=== PATIENT | female | born 1965 | race Caucasian/White ===

== ENCOUNTER 2020-08-28 09:17 | Observation (INO) | payer BC, OTHER ==
--- NOTE | 2020-08-28 10:29 | CT ---
EXAM: Brain CTWithout contrast: HISTORY: Syncope, injury from a fall COMPARISON: None FINDINGS: No focal mass or midline shift. No intra or extra-axial hemorrhage. Sinuses and mastoids are clear of acute process. IMPRESSION: No mass or bleed or other significant acute intracranial process.
[2020-08-28 10:50] LABS: #Basophils 0.1 thou/uL (0.0-0.2); #Eosinphils 0.2 thou/uL (0.0-0.7); #Lymphocytes 2.9 thou/uL (1.20-3.40); #Monocytes 0.5 thou/uL (0.11-0.59); #Neutrophils 9.3 thou/uL (1.40-6.50); %Basophils 0.5 % (0.0-1.0); %Eosinophils 1.3 % (0.0-10.0); %Lymphocytes 22.1 % (21.0-51.0); %Monocytes 4.2 % (0.0-10.0); %Neutrophils 71.9 % (42.0-75.0); Hemoglobin 15.8 g/dL (12.0-16.0); Mean Corpuscular HGB CONC 32.7 g/dL (32.0-36.0); Mean Corpuscular Hemoglobin 28.9 pg (27.0-31.0); Mean Corpuscular Volume 88.4 fL (78.0-98.0); Mean Platelet Volume 9.6 fL (7.4-10.4); Platelet Count 203 thou/uL (130-400); RBC Distribution Width 12.5 % (11.5-14.5); Red Blood Cell (RBC) Count 5.44 mill/uL (4.20-5.40); White Blood Cell (WBC) Count 12.9 thou/uL (4.8-10.8)
[2020-08-28 11:31] LABS: ALT (SGPT) 19 U/L (8-55); AST (SGOT) 22 U/L (5-34); Albumin 4.1 g/dL (3.5-5.0); Alkaline Phosphatase 88 U/L (40-110); Anion Gap 20 mmol/L (10-20); BUN (Urea Nitrogen) 14 mg/dL (9.8-20.1); Bilirubin, Total 0.6 mg/dL (0.2-1.2); Calc. Creatinine Clearance 0 mL/min (70-130); Calcium 9.4 mg/dL (7.8-10.44); Carbon Dioxide 19 mmol/L (22-29); Chloride 106 mmol/L (98-107); Globulin 3.4 g/dL (2.4-3.5); Glucose 98 mg/dL (70-105); Potassium 3.8 mmol/L (3.5-5.1); Protein, Total 7.5 g/dL (6.0-8.3); Sodium 141 mmol/L (136-145)
[2020-08-28] MEDS ORDERED: Acetaminophen 325 MG TAB PO PRN (13:35)
[2020-08-28] MEDS ORDERED: Ondansetron PF 4 MG/2 ML Vial IVP PRN (13:37)
--- NOTE | 2020-08-28 13:40 | PDOC.HHP ---
Hospitalist HPI Syncope History of Present Illness: The patient is 54-year-old female with past medical history of hypertension, vertigo, and vestibular migraine who presented to the hospital after losing consciousness at home. The patient stated that she has been feeling lightheaded and flushed this morning. This was followed by an episode of losing consciousness. Her reported that the episode lasted only a few seconds. After which the patient was not confused. EMS reported heart rate in the 50s when they arrived. The patient received 0.5 mg of atropine which led to improvement in her heart rate. Past History: PMHx: As above PSHx: Hysterectomy FHx: Noncontributory to current presentation Social: Drinks alcohol socially. Denies smoking or illicit drug use. Hospitalist HPI ROS All other systems reviewed; all pertinent +/- noted in HPI/Subj Hospitalist Exam General Appearance: awake alert ENT: normocephalic atraumatic Neck: supple Heart: RRR, no murmur, no gallops Respiratory: CTAB, no wheezes, no rales Gastrointestinal: soft Extremities: no cyanosis, no clubbing Neurological: cranial nerve grossly intact, no focal deficits Hospitalist Results Result Diagrams: 08/28/20 10:32 08/28/20 10:32 Lab results: Laboratory Last Values WBC 12.9 thou/uL (4.8-10.8) H 08/28/20 10:32 RBC 5.44 mill/uL (4.20-5.40) H 08/28/20 10:32 Hgb 15.8 g/dL (12.0-16.0) 08/28/20 10:32 Hct 48.1 % (36.0-47.0) H 08/28/20 10:32 MCV 88.4 fL (78.0-98.0) 08/28/20 10:32 MCH 28.9 pg (27.0-31.0) 08/28/20 10:32 MCHC 32.7 g/dL (32.0-36.0) 08/28/20 10:32 RDW 12.5 % (11.5-14.5) 08/28/20 10:32 Plt Count 203 thou/uL (130-400) 08/28/20 10:32 MPV 9.6 fL (7.4-10.4) 08/28/20 10:32 Neutrophils % 71.9 % (42.0-75.0) 08/28/20 10:32 Lymphocytes % 22.1 % (21.0-51.0) 08/28/20 10:32 Monocytes % 4.2 % (0.0-10.0) 08/28/20 10:32 Eosinophils % 1.3 % (0.0-10.0) 08/28/20 10:32 Basophils % 0.5 % (0.0-1.0) 08/28/20 10:32 Neutrophils # 9.3 thou/uL (1.40-6.50) H 08/28/20 10:32 Lymphocytes # 2.9 thou/uL (1.20-3.40) 08/28/20 10:32 Monocytes # 0.5 thou/uL (0.11-0.59) 08/28/20 10:32 Eosinophils # 0.2 thou/uL (0.0-0.7) 08/28/20 10:32 Basophils # 0.1 thou/uL (0.0-0.2) 08/28/20 10:32 Sodium 141 mmol/L (136-145) 08/28/20 10:32 Potassium 3.8 mmol/L (3.5-5.1) 08/28/20 10:32 Chloride 106 mmol/L (98-107) 08/28/20 10:32 Carbon Dioxide 19 mmol/L (22-29) L 08/28/20 10:32 Anion Gap 20 mmol/L (10-20) 08/28/20 10:32 BUN 14 mg/dL (9.8-20.1) 08/28/20 10:32 Creatinine 1.14 mg/dL (0.6-1.1) H 08/28/20 10:32 Estimated GFR (MDRD) 50 08/28/20 10:32 Glucose 98 mg/dL (70-105) 08/28/20 10:32 Calcium 9.4 mg/dL (7.8-10.44) 08/28/20 10:32 Total Bilirubin 0.6 mg/dL (0.2-1.2) 08/28/20 10:32 AST 22 U/L (5-34) 08/28/20 10:32 ALT 19 U/L (8-55) 08/28/20 10:32 Alkaline Phosphatase 88 U/L (40-110) 08/28/20 10:32 Troponin I Less than 0.010 ng/mL (< 0.028) 08/28/20 10:32 Serum Total Protein 7.5 g/dL (6.0-8.3) 08/28/20 10:32 Albumin 4.1 g/dL (3.5-5.0) 08/28/20 10:32 Globulin 3.4 g/dL (2.4-3.5) 08/28/20 10:32 Albumin/Globulin Ratio 1.2 g/dL (1.2-2.2) 08/28/20 10:32 Hospitalist H&P A/P (1) Symptomatic bradycardia Code(s): R00.1 - BRADYCARDIA, UNSPECIFIED Status: Acute (2) Syncope Code(s): R55 - SYNCOPE AND COLLAPSE Status: Acute (3) Hypertension Code(s): I10 - ESSENTIAL (PRIMARY) HYPERTENSION Status: Acute (4) Vertigo Code(s): R42 - DIZZINESS AND GIDDINESS Status: Acute (5) Migraines Code(s): G43.909 - MIGRAINE, UNSP, NOT INTRACTABLE, WITHOUT STATUS MIGRAINOSUS Status: Acute Plan: Presented with symptomatic bradycardia secondary to use of bisoprolol. Medication was prescribed for the patient's hypertension about a month ago. We will place the medicine on hold and monitor the patient on telemetry for the next 24 hours. If her symptoms do not recur, will consider discharging her. Recurrent bradycardia will be managed with atropine, consideration for IV dopamine, or temporary pacer.
[2020-08-28 19:40] LABS: SARS-CoV-2 NAA Rapid Test Not Detected (NotDetected)
[2020-08-28 22:49] VITALS: BMI 34.4
[2020-08-29 04:48] LABS: #Basophils 0.1 thou/uL (0.0-0.2); #Eosinphils 0.2 thou/uL (0.0-0.7); #Lymphocytes 3.9 thou/uL (1.20-3.40); #Monocytes 0.8 thou/uL (0.11-0.59); #Neutrophils 6.7 thou/uL (1.40-6.50); %Basophils 0.7 % (0.0-1.0); %Eosinophils 1.8 % (0.0-10.0); %Lymphocytes 33.1 % (21.0-51.0); %Monocytes 6.9 % (0.0-10.0); %Neutrophils 57.6 % (42.0-75.0); Hemoglobin 14.6 g/dL (12.0-16.0); Mean Corpuscular Hemoglobin 31.2 pg (27.0-31.0); Mean Corpuscular Volume 89.2 fL (78.0-98.0); Mean Platelet Volume 9.9 fL (7.4-10.4); Platelet Count 224 thou/uL (130-400); RBC Distribution Width 12.2 % (11.5-14.5); Red Blood Cell (RBC) Count 4.68 mill/uL (4.20-5.40); White Blood Cell (WBC) Count 11.7 thou/uL (4.8-10.8)
[2020-08-29 05:10] LABS: Anion Gap 15 mmol/L (10-20); BUN (Urea Nitrogen) 20 mg/dL (9.8-20.1); Calc. Creatinine Clearance 88 mL/min (70-130); Carbon Dioxide 24 mmol/L (22-29); Chloride 103 mmol/L (98-107); Glucose 93 mg/dL (70-105); Potassium 3.5 mmol/L (3.5-5.1); Sodium 138 mmol/L (136-145)
[2020-08-29] MEDS: Enoxaparin Sodium 40 MG/0.4 ML SYRINGE SC SCH (09:10)
[2020-08-29] MEDS ORDERED: Sodium Chloride 0.9% 500 ML IV SCH (10:45)
[2020-08-29 18:01] LABS: Bilirubin Negative (Negative); Blood, Urine Trace (Negative); Clarity Clear (Clear); Glucose, Urine (Dipstick) Normal (Negative); Ketone, Urine Negative (Negative); Leukocyte Negative Leu/uL (Negative); Nitrite Negative (Negative); Protein, Urine (Dipstick) Negative (Neg-Trace); RBC/HPF 0-3 HPF (0-3); Specific Gravity, Urine 1.009 (1.002-1.036); Squamous Epithelial 0-3 HPF (0-3); Urobilinogen Normal mg/dL (Less than 2); WBC/HPF None Seen HPF (0-3); pH, Urine 5.5 (5.0-9.0)
[2020-08-29 18:02] LABS: Bacteria/HPF 1+ HPF (None Seen)
[2020-08-29 18:03] LABS: Urine Culture Reflex Yes Yes
[2020-08-29] MEDS ORDERED: Meclizine HCl 25 MG TAB PO PRN (19:30)
[2020-08-29] MEDS: Sodium Chloride 0.9% 1,000 ML IV SCH (20:13)
[2020-08-29] MEDS ORDERED: Amitriptyline HCl 10 MG TAB PO SCH (21:00)
[2020-08-29] MEDS ORDERED: Montelukast Sodium 10 mg Tablet PO SCH (21:00)
[2020-08-29] MEDS ORDERED: Estradiol 1 MG TAB PO SCH (21:00)
[2020-08-30 07:41] VITALS: TEMP 97.6
[2020-08-30] MEDS: Enoxaparin Sodium 40 MG/0.4 ML SYRINGE SC SCH (08:33)
[2020-08-30] MEDS: Sodium Chloride 0.9% 1,000 ML IV SCH (08:34)
[2020-08-30] MEDS ORDERED: Bacitracin Zinc Ointment 30 gm TUBE TOP SCH (09:00)
[2020-08-30 11:07] VITALS: BP 126/74
--- NOTE | 2020-08-30 19:00 | PDOC.DS.DS ---
Provider Date of Admission: 08/28/20 13:29 Admitting Provider: Owen Madrid MD Primary Care Physician: FLORIAN MOTA MD Course Lab Results: 08/29/20 03:56 08/29/20 03:56 Abnormal Lab Results - Last 48 hrs 08/29/20 03:56: WBC 11.7 H, MCH 31.2 H, Neutrophils # 6.7 H, Lymphocytes # 3.9 H, Monocytes # 0.8 H 08/29/20 17:34: Urine Blood Trace A, Urine Bacteria 1+ A, Urine Culture Reflexed Yes A Microbiology - Entire Visit 08/29/20 18:02 Urine clean catch Urine Culture - Preliminary Vitals: Vital Signs (12 hours) Temp Pulse Resp BP BP BP BP 08/30/20 11:04 97.6 F 72 15 126/74 08/30/20 09:53 87 116/74 08/30/20 09:52 72 108/71 08/30/20 09:50 77 111/71 08/30/20 07:40 97.6 F 73 14 122/60 Pulse Ox 08/30/20 11:04 95 08/30/20 09:53 08/30/20 09:52 08/30/20 09:50 08/30/20 07:40 96 Weight Weight 188 lb Physical Exam: The patient was seen and examined on the day of discharge. Plan Home Medications: Medication Instructions Recorded Confirmed Type Amitriptyline HCl [Elavil] 10 mg PO HS 08/28/20 08/28/20 History Estradiol [Estrace] 1 mg PO HS 08/28/20 08/28/20 History Fexofenadine HCl [Connie Allergy] 180 mg PO DAILY PRN 08/28/20 08/28/20 History Ibuprofen [Advil] 200 mg PO Q6HR PRN 08/28/20 08/28/20 History Meclizine HCl 25 mg PO DAILY PRN 08/28/20 08/28/20 History Montelukast Sodium [Singulair] 10 mg PO HS 08/28/20 08/28/20 History Allergies: amoxicillin Allergy (Verified 08/28/20 20:56) Activity:: Activity as Tolerated Nourishment:: No Restrictions Referrals: Guero Feliciano MD [Active] - 2-3 Weeks (Please call the office to make an appointment with the neurologist.) FLORIAN MOTA MD [Primary Care Provider] - 7 Days (Please call the office to make an appointment.) Disposition: HOME
--- NOTE | 2020-09-01 15:53 | EKG ---
Test Reason : SYNCOPE Blood Pressure : / mmHG Vent. Rate : 060 BPM Atrial Rate : 060 BPM P-R Int : 148 ms QRS Dur : 090 ms QT Int : 418 ms P-R-T Axes : 040 029 032 degrees QTc Int : 418 ms Normal sinus rhythm Normal ECG Confirmed by DORIAN VELA ([id number]), trauma coordinator CORRY CHASE ([id number]) on 09/01/2020 3:53:13 PM Referred By: MARILU Confirmed By:DORIAN VELA
== END 2020-08-30 14:35 | disposition home or self-care (01) ==
LOC: ERS 09:17 → ERHOLD 13:29 → 2NO 22:05
PROVIDERS: ADMIT Internal Medicine; ATTEND Internal Medicine
DX: R55 Syncope and collapse (principal); R00.1 Bradycardia, unspecified; T44.7X5A Adverse effect of beta-adrenoreceptor antagonists, initial encounter; I10 Essential (primary) hypertension; R42 Dizziness and giddiness; G43.809 Other migraine, not intractable, without status migrainosus; Z79.899 Other long term (current) drug therapy; Z88.0 Allergy status to penicillin; Z20.822 Contact with and (suspected) exposure to COVID-19
CPT/HCPCS: 0240U; 36415; 70450; 80048; 80053; 81001; 84484; 85025; 87086; 93005; 96372; G0378; J1650